=== PATIENT | male | born 1975 | race Caucasian/White ===

== ENCOUNTER 2017-12-12 10:36 | Outpatient (CLI) | payer MEDICAID ==
--- NOTE | 2017-12-13 13:07 | RAD ---
MODIFIED BARIUM SWALLOW WITH SPEECH THERAPIST: History: 42-year-old male with dysphagia following other unspecified cerebrovascular disease, I69.891, dysp hagia unspecified R13.10, and feeding difficulties R63.3. Resident of [facility], referred to determine least restrictive diet textures, with hope for diet upgrade. Profoun d intellectual disability, seizure disorder. Remote history of pneumonia in 2015. FINDINGS: There are episodes of penetration. Laryngeal elevation and epiglottic inversion appear to be adequate . No significant residue identified. IMPRESSION: 1. Multiple episodes of penetration. 2. See separate complete report by speech therapist. POS: [facility]
== END 2017-12-12 10:37 | disposition home or self-care (01) ==
DX: I69.891 Dysphagia following other cerebrovascular disease (principal); R13.10 Dysphagia, unspecified; R63.3 Feeding difficulties; R94.8 Abnormal results of function studies of other organs and systems
CPT/HCPCS: 74230; G8996-GN-CJ; G8997-GN-CJ; G8998-GN-CJ